=== PATIENT | female | born 1995 | race African-American/Black ===

== ENCOUNTER 2019-03-07 22:33 | Emergency (ER) | payer OTHER ==
--- NOTE | 2019-03-07 23:49 | ED Physician Documentation ---
History of Present Illness - Stated complaint Stated Complaint: LT BREAST BLEED - Chief complaint Chief Complaint: Wound - History obtained from History obtained from: Patient - History of Present Illness Timing: Prior to arrival - Additonal information Additional information: This is a 24-year-old woman who presents with complaints that couple weeks ago she found a lump on her left breast she went [place] see medical [place] the [email or web address] [place] and they ordered an ultrasound because they thought that it "looked superficial". The ultrasound came back showing "everything fine". She kind of forgot about it was not having any pain and then tonight as she just scratched her breast and looked down and there was blood all over her left hand. She went and looked in the mirror at that point and realized there was a "dime sized hole" where the lump had been. To little bit tender but she has not really been having any pain in it. There is not been any discharge on her bra that she is been aware of. She has not run any fever. She is concerned because her grandmother at age 35 of breast cancer. The patient is never had a mammogram. Review of Systems Constitutional: denies: Fever Skin: reports: Lesions PD PAST MEDICAL HISTORY - Present Medications Home Medications: Ambulatory Orders Medication Instructions Recorded Confirmed No Known Home Medications 03/07/19 03/07/19 - Allergies Allergies/Adverse Reactions: Allergies Allergy/AdvReac Type Severity Reaction Status Date / Time No Known Drug Allergies Allergy Verified 03/07/19 22:45 PD ED PE NORMAL - Vitals Vital signs reviewed: Yes - General General: Alert and oriented X 3, No acute distress, Well developed/nourished - Derm Derm: Other (Right at the inferior margin of the left areole there is a small erosion that measures just a couple millimeters in diameter. No surrounding erythema or edema. There is no palpable mass below this.) - Extremities Extremities: Other - Neuro Neuro: Alert and oriented X 3, diploma medical assistant 2-12 intact, Normal speech, Other (5 out of 5 mobile sales consultant strength.) - Psych Psych: Normal mood, Normal affect Results - Vitals Vitals: Vital Signs - 24 hr 03/07/19 03/08/19 22:40 00:29 Temperature 36.9 C Heart Rate 80 76 Respiratory 17 16 Rate Blood Pressure 126/92 H 124/84 H O2 Saturation 96 100 Oxygen O2 Source Room air PD MEDICAL DECISION MAKING - ED course Complexity details: d/w patient ED course: Patient is instructed on wound care. I suspect that there was a cyst or furuncle that formed a scab in his come off however the risk of inflammatory breast carcinoma has to be considered in the differential. She is instructed that if this is not healing completely over the next 5 to 7 days [place]. Departure - Departure Disposition: 01 Home, Self Care Clinical Impression: Abrasion Instructions: ED Abrasion Follow-Up: MEGH[facility] Eugene [Provider Group] Comments: [place] this is not completely healed in 5 to 7 days. Apply antibiotic ointment and keep it covered. May wash with soap and water. Discharge Date/Time: 03/08/19 00:29
[2019-03-08] MEDS ORDERED: BACITRACIN ZINC OINT 1 PACKET TOP STA (00:09)
[2019-03-08 00:29] VITALS: BP 124/84
== END 2019-03-08 00:29 | disposition home or self-care (01) ==
LOC: ED 22:33
DX: S20.112A Abrasion of breast, left breast, initial encounter (principal); X58.XXXA Exposure to other specified factors, initial encounter; Z80.3 Family history of malignant neoplasm of breast
CPT/HCPCS: 99282; 99284; A9270

== ENCOUNTER 2021-09-01 08:00 | Outpatient (CLI) | payer OTHER | END 2021-09-02 21:18 | disposition home or self-care (01) | LOC: LAB.N 08:00 | PROVIDERS: ATTEND Registered Nurse | DX: J34.89 Other specified disorders of nose and nasal sinuses (principal); Z20.822 Contact with and (suspected) exposure to COVID-19 ==

== ENCOUNTER 2021-10-01 23:46 | Emergency (ER) | payer OTHER ==
[2021-10-01 23:55] VITALS: BP 133/79
--- NOTE | 2021-10-02 00:16 | ED Physician Documentation ---
PD HPI URI - Stated complaint Stated Complaint: CONGESTION/SOA - Chief complaint Chief Complaint: Resp - History obtained from History obtained from: Patient - History of Present Illness Timing - onset: How many weeks ago (has had some nasal congestion and drainage for couple of weeks that she attributes to seasonal allergies. But has had 1-2 days of significant nasal congestion and drainage, nonpurulent without teeth pain nor sinus pain. Does have muffled hearing both ears. No throat swelling, but some dyspnea.) Timing duration: Days (1-2 days of unable to breath through nose, muffled hearing, and some dyspnea/wheeze.), Weeks (with some congestion) Associated symptoms: Ear pain, Nasal congestion, Sinus pain (pressure more than pain per se.), Dyspnea. No: Fever, Sore throat, Productive cough Contributing factors: No: Sick contact, Immunocompromised Improves by: No: Medication (has tried claritin and benadryl without improvement.) Similar symptoms before: Diagnosis (seasonal allergies.) Recently seen: Not recently seen Review of Systems Constitutional: denies: Fever, Chills, Myalgias Ears: reports: Ear pain. denies: Drainage/discharge, Tinnitus/ringing Nose: reports: Rhinorrhea / runny nose, Congestion, Sinus pressure / pain Throat: denies: Sore throat Cardiac: denies: Chest pain / pressure Respiratory: reports: Dyspnea, Wheezing. denies: Cough GI: denies: Nausea, Vomiting, Diarrhea Skin: denies: Rash, Lesions PD PAST MEDICAL HISTORY - Past Medical History Cardiovascular: None Respiratory: None Neuro: None Endocrine/Autoimmune: None - Present Medications Home Medications: Ambulatory Orders Medication Instructions Recorded Confirmed Albuterol Sulf [Ventolin Hfa 2 - 3 puffs INH Q4HR PRN #1 inhaler 10/02/21 Inhaler] Amoxicillin 500 mg PO TID #15 cap 10/02/21 Cetirizine [ZyrTEC] 10 mg PO BID #30 tablet 10/02/21 Oxymetazoline HCl [Afrin] 2 spray MEGHAN Q6H PRN #30 ml 10/02/21 dexAMETHasone [Decadron] 4 mg PO DAILY #5 tablet 10/02/21 - Allergies Allergies/Adverse Reactions: Allergies Allergy/AdvReac Type Severity Reaction Status Date / Time No Known Drug Allergies Allergy Verified 10/01/21 23:55 - Social History Does the pt smoke?: No Smoking Status: Never smoker PD ED PE NORMAL - Vitals Vital signs reviewed: Yes - General General: Alert and oriented X 3, No acute distress, Well developed/nourished - HEENT HEENT: Moist mucous membranes, Pharynx benign, Other (obvious nasal congestion with clogged nasopharynx and nonresonance of her voice with talking.). No: Ears normal (TMs both bulging with fluid but no erythema nor purulence. ) - Neck Neck: Supple, no meningeal sign, No adenopathy - Cardiac Cardiac: RRR, No murmur - Respiratory Respiratory: Clear bilaterally - Abdomen Abdomen: Soft, Non tender - Derm Derm: Normal color, Warm and dry, No rash - Neuro Neuro: Alert and oriented X 3, No motor deficit, Normal speech Results - Vitals Vitals: Vital Signs - 24 hr 10/01/21 10/02/21 23:51 01:10 Temperature 36.5 C Heart Rate 91 86 Respiratory 18 18 Rate Blood Pressure 133/79 H O2 Saturation 99 Oxygen O2 Source Room air PD MEDICAL DECISION MAKING - ED course Complexity details: considered differential (mainly sinus/nasal congestion with some feeling of dyspnea. No fever, purulent discharge nor cough. Can treat as allergies/URI, and does not sound like bacterial sinusitis as yet. ), d/w patient Departure - Departure Disposition: 01 Home, Self Care Clinical Impression: Sinus congestion Dyspnea Qualifiers: Dyspnea type: shortness of breath Qualified Code(s): R06.02 - Shortness of breath Condition: Stable Record reviewed to determine appropriate education?: Yes Follow-Up: MEGH[facility] Eugene [Provider Group] Prescriptions: Albuterol Sulf [Ventolin Hfa Inhaler] 2 - 3 puffs INH Q4HR PRN #1 inhaler PRN Reason: Shortness Of Air/Wheezing Oxymetazoline HCl [Afrin] 2 spray MEGHAN Q6H PRN #30 ml PRN Reason: Nasal Congestion Amoxicillin 500 mg PO TID #15 cap dexAMETHasone [Decadron] 4 mg PO DAILY #5 tablet Cetirizine [ZyrTEC] 10 mg PO BID #30 tablet Comments: We will presume either allergies or a viral type illness with the congestion and improper drainage from the sinuses leading to the trouble breathing through the nose and the clogging of the ears. There may be some inflammation to the upper airway as well with the some trouble breathing. At this point it does not seem likely bacterial so would hold off on antibiotic for now. If you develop feverish or purulent nasal discharge or swollen glands, then consider adding amoxicillin antibiotic as well. Otherwise I treated with in the short-term oxymetazoline known (Afrin) nasal spray every 4-6 hours to help with the congestion and better breathing. Uses just short-term in the first 2 to 3 days. Also continue cetirizine antihistamine twice daily over the next several days to a week and then once daily for another week or 2. We will also add add dexamethasone steroid daily for 5 more days to get inflammation down and promote better drainage. Use albuterol inhaler 2 puffs 3-4 times daily to also help with improved breathing in the upper airway. Recheck if not improving well over the next few days and resolved by 3 to 5 days or so. I transmitted the prescriptions to [facility] in [place]. Discharge Date/Time: 10/02/21 01:40
[2021-10-02] MEDS ORDERED: OXYMETAZOLINE HCL 100 SPRAYS BOTTLE NAS STA (00:57)
[2021-10-02] MEDS ORDERED: CETIRIZINE 10 MG TABLET PO STA (00:57)
[2021-10-02] MEDS ORDERED: CHERRY SYRUP 10 ML UDC PO ONE (00:57)
[2021-10-02] MEDS ORDERED: DEXAMETHASONE 10 MG/ML VIAL PO STA (00:57)
[2021-10-02] MEDS ORDERED: ALBUTEROL 1 PUFF INH STA (00:57)
== END 2021-10-02 01:40 | disposition home or self-care (01) ==
LOC: ED 23:46
DX: R09.81 Nasal congestion (principal); R06.02 Shortness of breath
CPT/HCPCS: 94640; 94664; 99283; A9270